=== PATIENT | male | born 1950 | race Caucasian/White ===

== ENCOUNTER 2020-09-14 10:18 | Emergency (ER) | payer MEDICARE, OTHER ==
[~2020-09-14] VITALS: Ht 172.7 cm; Wt 88.6 kg
[2020-09-14 11:12] LABS: BASO # 0.1 x10^3/uL (0.0-0.2); BASO % 1 % (0-3); EOS # 0.1 x10^3/uL (0.0-0.7); EOS % 2 % (0-3); HEMATOCRIT 43.4 % (39.0-53.0); HEMOGLOBIN 14.3 g/dL (13.0-17.5); LYMPH # 1.2 x10^3/uL (1.0-4.8); LYMPH % 18 % (24-48); MEAN CORPUSCULAR HEMOGLOBIN 30 pg (25-35); MEAN CORPUSCULAR HGB CONC 33 g/dL (31-37); MEAN CORPUSCULAR VOLUME 90 fL (79-100); MONO # 0.5 x10^3/uL (0.0-1.1); MONO % 7 % (0-9); NEUT # 4.9 x10^3uL (1.8-7.7); NEUT % 73 % (31-73); PLATELET COUNT 209 x10^3/uL (140-400); RED BLOOD COUNT 4.84 x10^6/uL (4.30-5.70); RED CELL DISTRIBUTION WIDTH 13.8 % (11.5-14.5); WHITE BLOOD COUNT 6.7 x10^3/uL (4.0-11.0)
[2020-09-14 11:14] LABS: ANION GAP 9 (6-14); BLOOD UREA NITROGEN 28 mg/dL (8-26); BUN/CREATININE RATIO 22 (6-20); CALCIUM 8.6 mg/dL (8.5-10.1); CARBON DIOXIDE 28 mmol/L (21-32); CHLORIDE 107 mmol/L (98-107); CREATININE 1.3 mg/dL (0.7-1.3); GFR 54.4; GLUCOSE 157 mg/dL (70-99); POTASSIUM 3.9 mmol/L (3.5-5.1); SODIUM 144 mmol/L (136-145)
--- NOTE | 2020-09-14 11:14 | RAD ---
CT HEAD/BRAIN WO Date: 09/14/2020 10:45 AM Clinical Indication: Reason: headache, dizzy times 3 days / Spl. Instructions: / History: Comparison: None. Technique: 5 mm axial tomographic images were obtained of the head without contrast. These were view ed on brain and bone windows. One or more of the following dose reduction techniques were utilized: A utomated exposure control (AEC), Adjustment of mA and/or kV according to patient size, Use of iterati ve reconstruction technique such as ASiR, CT scan done according to ALARA and image gently/image plummer ly Findings: Partially calcified probable extra-axial mass along the planum sphenoidale measuring 4.1 x 3.2 x 3.1 cm (TV by AP by CC). Cystic structure along the left aspect of the mass measures 3.2 x 2.5 x 2.6 cm. Hypoattenuation of the adjacent bifrontal white matter. Patent subarachnoid cisterns. No midline shif t. No acute hemorrhage. No vascular territory jones-white loss. The visualized paranasal sinuses are normal. The visualized portions of the orbits and globes are no rmal. The mastoid air cells are clear. 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 Impression: 1. Partially calcified 4.1 cm mass along the planum sphenoidale, probably a meningioma. Edema and/or gliosis in the surrounding white matter. This could be further evaluated with MRI. No midline shift. Patent subarachnoid cisterns. 2. 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 3. No acute intracranial hemorrhage. No large area jones-white loss. Electronically signed by: Compa Engel MD (09/14/2020 11:11 AM) [id number]
--- NOTE | 2020-09-14 11:16 | PHYS DOC ---
Past History Past Medical History: Diabetes Past Surgical History: Tonsillectomy Alcohol Use: None Adult General Chief Complaint Chief Complaint: WEAKNESS/GENERALIZED HPI HPI Patient is a 70-year-old male who presents to the emergency room from Dr. Woodall office for possible stroke. Patient states he has not felt normal for the last 3 days. He had a headache all day yesterday which was not helped by waku-cnu-hlzauxp medications. Last night he got up to try to go to the bathroom and it took him 15 minutes to make it 8 feet due to significant imbalance. This is atypical for him. He does not feel dizzy at rest. He does not feel focally weak or numb in any of his extremities. He feels like he is generally at 50% strength. He denies any associated symptoms such as URI symptoms, cough, shortness of breath, weight loss, nausea, vomiting, diarrhea, constipation, fevers, chills, sweats, visual changes. Review of Systems Review of Systems Complete ROS is negative unless otherwise documented in HPI Allergies Allergies Allergies Coded Allergies Type Severity Reaction Last Updated Verified amoxicillin Allergy Unknown 09/14/20 Yes Physical Exam Physical Exam General: Awake, alert, NAD. Well Nourished, well hydrated. Cooperative HEENT: Atraumatic, EOMI, PERRL, airway patent, moist oral mucosa Neck: Supple, trachea midline Respiratory: CTA bilaterally, normal effort, no wheezing/crackles CV: RRR, no murmur, cap refill <2 GI: Soft, nondistended, nontender, no masses MSK: No obvious deformities Skin: Warm, dry, intact Neuro: A&O x3, speech NL, 5/5 strength in BUE/BLE distally and proximally, CN 2- 12 intact, cerebellar testing normal, unable to stand without following Psych: Normal affect, normal mood, not suicidal or homicidal Current Patient Data Vital Signs Vital Signs Date Time Temp Pulse Resp B/P (MAP) Pulse Ox O2 Delivery O2 Flow Rate FiO2 09/14/20 10:28 98.1 75 16 164/92 (116) 98 09/14/20 10:28 Room Air EKG EKG [] Radiology/Procedures Radiology/Procedures [] Heart Score Risk Factors: Risk Factors: DM, Current or recent (<one month) smoker, HTN, HLP, family history of CAD, obesity. Risk Scores: Risk Factors: DM, Current or recent (<one month) smoker, HTN, HLP, family history of CAD, obesity. Course & Med Decision Making Course & Med Decision Making Pertinent Labs and Imaging studies reviewed. (See chart for details) Patient is a 70-year-old male who presents to the emergency room complaining of generalized weakness and dizziness. Patient has an NIH score of 0, however he has a significant headache. He also feels like it is harder to use his left arm than his right arm despite having normal strength in both. He has intact cranial nerves. CT head and a metabolic work-up was ordered to evaluate for generalized weakness and dizziness. CT shows mass with surrounding edema. There does not appear to be a hemorrhagic conversion. I have discussed the case with [facility] who will accept him to their neurosurgical service. Dragon Disclaimer Dragon Disclaimer This electronic medical record was generated, in whole or in part, using a voice recognition dictation system. Departure Departure: Impression: Primary Impression: Brain mass Additional Impression: Intracranial edema Disposition: 02 DC/TRF OTHER SHORT TERM HOS Condition: STABLE Referrals: MARGAUX WOODALL MD (PCP) Problem Qualifiers DIANE HUDSON MD Sep 14, 2020 11:16
[2020-09-14 11:20] LABS: ALBUMIN 3.5 g/dL (3.4-5.0); ALBUMIN/GLOBULIN RATIO 0.9 (1.0-1.7); ALK PHOS 59 U/L (46-116); ALT (SGPT) 27 U/L (16-63); AST (SGOT) 13 U/L (15-37); LIPASE 151 U/L (73-393); TOTAL BILIRUBIN 0.6 mg/dL (0.2-1.0); TOTAL PROTEIN 7.2 g/dL (6.4-8.2)
[2020-09-14 11:22] LABS: BACTERIA,URINE 0 /HPF (0-FEW); BILIRUBIN,URINE NEG (NEG); CLARITY,URINE CLEAR; COLOR,URINE YELLOW; GLUCOSE,URINE NEG (NEG); NITRITE,URINE NEG (NEG); SQUAMOUS EPITHELIAL CELL,UR OCC /LPF; UROBILINOGEN,URINE 0.2 mg/dL (0.2 mg/dL)
[2020-09-14 11:25] LABS: C REACTIVE PROTEIN < 0.5 mg/L (0-3.3)
[2020-09-14] MEDS: DEXAMETHASONE SOD PHOS 10 MG/ML VIAL. IV ONE (11:30)
[2020-09-14 17:54] VITALS: BP 156/80
== END 2020-09-14 18:51 | disposition short-term general hospital (02) ==
LOC: ER 10:18
DX: G93.6 Cerebral edema (principal); R22.0 Localized swelling, mass and lump, head; E11.9 Type 2 diabetes mellitus without complications; Z88.1 Allergy status to other antibiotic agents
CPT/HCPCS: 36415; 70450; 80053; 81001; 82550; 83690; 85025; 86140; 96374; 99285; J1100

== ENCOUNTER → 2020-12-05 | Outpatient (CLI) | payer MEDICARE, OTHER ==
--- NOTE | 2020-12-05 16:22 | RAD ---
EXAM: CT Head without IV contrast INDICATION: Reason: FOLLOW UP AFTER TUMOR REMOVAL 2 MTHS AGO. ONGOING HEADACHE. / Spl. Instructions: / History: TECHNIQUE: Multi-detector row CT images were obtained of the head without the use of IV contrast. All CT scans performed at this facility utilize dose optimization techniques as appropriate to the exam, including the following: Automated exposure control and adjustment of the mA and/or KV according to patient size (this includes techniques or standardized protocols for targeted exams where dose is ind ication/reason for exam). COMPARISON: Noncontrast head CT of 09/14/2020 FINDINGS: BRAIN PARENCHYMA: No acute intracranial hemorrhage is apparent. There is low density in the bilateral inferior frontal lobes compatible with encephalomalacia. This extends to the anterior cortex of the inferior left frontal lobe, new from prior, consistent with a chronic cortical infarct. There is exte nsive white matter low density compatible chronic ischemic microvascular change or vasogenic edema, i mproved from prior and most notable in the bilateral frontal lobes. VENTRICLES & EXTRA-AXIAL SPACES: Ventricles are prominent in proportion to the degree of parenchymal volume loss. There has been an interval left pterional craniotomy for tumor resection with interval absence of the partly calcified floor of the anterior cranial fossa mass previously evident. Subjacen t to the craniotomy flap is a low-density fluid collection measuring up to 6 mm in depth, overlying t he partly calcified dura. Basilar cisterns are patent. No pathologic extra-axial fluid collection or mass. ORBITS: Orbital contents are unremarkable. SINUSES: Soft tissue layering in the left sphenoid sinus is present. Paranasal sinuses and mastoids are otherwise well aerated. OSSEOUS & SOFT TISSUES: No aggressive osseous lesions are seen. Skull base is intact. Left pterional craniotomy surgical changes newly noted. IMPRESSION: Interval postsurgical changes for extra-axial calcified mass resection from the floor of the anterior cranial fossa with residual encephalomalacia in the frontal lobes, and a low-density extra-axial flu id collection under the craniotomy flap as described. There has been some improvement in the bilatera l frontal white matter hypoattenuation compatible with vasogenic edema. Electronically signed by: Monik Winkler MD (12/05/2020 4:20 PM) [id number]
== END ==
LOC: CT 09:56
PROVIDERS: ATTEND Family Medicine
DX: G93.89 Other specified disorders of brain (principal); R51.9 Headache, unspecified
CPT/HCPCS: 70450

== ENCOUNTER 2021-10-08 07:28 | Emergency (ER) | payer MEDICARE, OTHER ==
[~2021-10-08] VITALS: Ht 177.8 cm; Wt 90.0 kg
--- NOTE | 2021-10-08 08:28 | PHYS DOC ---
Past History Past Medical History: Diabetes Additional Past Medical Histor: brain tumors Past Surgical History: Other Additional Past Surgical Histo: brain tumors removed 2020 Alcohol Use: None General Adult EDM: Chief Complaint: NEURO SYMPTOMS/DEFICITS HPI: HPI: Patient is a 71-year-old male coming in for tingling to his right forearm and hand. Says he feels his hand is swollen. Denies any headaches or neck pain. Is left-handed and was shoveling snow yesterday. Denies any other injuries. Woke up with the tingling. Review of Systems: Review of Systems: All other systems within normal limits except for as noted in the HPI Allergies: Allergies: Allergies Coded Allergies Type Severity Reaction Last Updated Verified amoxicillin Allergy Unknown 10/08/21 Yes Physical Exam: PE: Constitutional: Well developed, well nourished, no acute distress, non-toxic appearance. [] HENT: Normocephalic, atraumatic, bilateral external ears normal, nose normal. [] Eyes: PERRLA, conjunctiva normal, no discharge. [] Neck: No rigidity, supple, no stridor. [] Cardiovascular: Regular rate and rhythm, brisk cap refill [] Lungs & Thorax: Non labored symmetric respirations, no tachypnea or respiratory distress [] Abdomen: Soft, nondistended. Skin: Warm, dry, no erythema, no rash. [] Back: Unremarkable Extremities: No deformities, range of motion grossly intact, no lower extremity edema [] Neurologic: Alert and oriented X 3, no focal deficits noted. [] Psychologic: Affect normal, judgement normal, mood normal. [] Current Patient Data: Vital Signs: Vital Signs Date Time Temp Pulse Resp B/P (MAP) Pulse Ox O2 Delivery O2 Flow Rate FiO2 10/08/21 07:30 97.7 72 12 152/89 (110) 94 Room Air EKG: EKG: [] Radiology/Procedures: Radiology/Procedures: [address] [address] IMAGING REPORT Signed PATIENT: SHELBY CHOI ACCOUNT: [id number] : 1950 LOCATION: ER AGE: 71 SEX: M EXAM STATUS: REG ER ORD. PHYSICIAN: ZAINAB CHAWLA MD REASON: right arm tingling AND PAIN. PROCEDURE: CT HEAD AND CERVICAL SPINE WO CT HEAD AND C-SPINE WO Date: 10/08/2021 8:51 AM Clinical Indication: Reason: right arm tingling AND PAIN. / Spl. Instructions: / History: Comparison: CT head from 2020. Technique: 5 mm axial tomographic images were obtained of the head without contrast. These were viewed on brain and bone windows. Noncontrast CT of the cervical spine was performed. Sagittal and coronal reformats were performed and evaluated. One or more of the following dose reduction techniques were utilized: Automated exposure control (AEC), Adjustment of mA and/or kV according to patient size, Use of iterative reconstruction technique such as ASiR, CT scan done according to ALARA and image gently/image wisely HEAD FINDINGS: Neither mass, midline shift, intracranial hemorrhage, acute/subacute ischemic changes, nor extraaxial fluid collections are seen. Redemonstrated encephalomalacia involving bilateral inferior frontal lobes, left greater than right with postsurgical changes and dural thickening overlying the left frontal lobe. Similar brain parenchymal volume loss. Similar scattered supratentorial periventricular white matter hypodensities, indeterminate but most likely representing chronic microangiopathic disease. The ventricular system is within normal limits of variation. Minimal mucosal thickening in the left sphenoid sinus, remaining paranasal sinuses, mastoid air cells, and middle ears are clear..The orbital contents appear within normal limits. Left pterional craniotomy surgical changes. No acute fracture or aggressive osseous abnormalities. Soft tissues are unremarkable. CERVICAL SPINE FINDINGS: The cervical spine is normally aligned. There is minimal grade 1 anterolisthesis of C3 on C4, and C4 and C5. No acute fracture. No aggressive lytic or blastic osseous lesions. Moderate to severe multilevel degenerative disc space height loss. Multilevel mild spinal canal stenosis secondary to disc protrusions and marginal osteophytes. Most pronounced at the C5-C6 and C6-C7 levels. Multilevel mild to moderate neuroforaminal narrowing secondary to uncovertebral arthrosis. Multilevel mild facet arthrosis. The thyroid gland is normal. No cervical lymphadenopathy. Bilateral carotid atherosclerosis. The visualized aerodigestive tract is normal. The visualized portions of the lungs are clear. IMPRESSION: 1. No acute intracranial process. 2. No acute cervical spine fracture. 3. Redemonstrated postsurgical changes with residual encephalomalacia in the frontal lobes, left greater than right.. 4. Moderate to severe degenerative cervical spondylosis, as above. Electronically signed by: Rob Dimas DO (10/08/2021 9:11 AM) [id number] DICTATED AND SIGNED BY: ROB DIMAS DO DATE: 10/08/21857 CC: ZAINAB CHAWLA MD; MARGAUX OBREGON MD ~MTH0 0 [][place] [address] IMAGING REPORT Signed PATIENT: SHELBY CHOI ACCOUNT: [id number] : 1950 LOCATION: ER AGE: 71 SEX: M EXAM STATUS: REG ER ORD. PHYSICIAN: ZAINAB CHAWLA MD REASON: pain WITH WEAKNESS PROCEDURE: FOREARM RIGHT XR FOREARM_RIGHT 2 VIEWS 10/08/2021 8:34 AM INDICATION: Pain with weakness COMPARISON: None available. TECHNIQUE: 2 views the right forearm are provided. FINDINGS/ IMPRESSION: There is no acute fracture or dislocation. Joint spaces are maintained. Bone mineralization is within normal limits. Regional soft tissues are within normal limits. There is no soft tissue gas or osseous erosion. No radiopaque foreign body. Electronically signed by: Arun Bob MD (10/08/2021 8:59 AM) [id number] DICTATED AND SIGNED BY: ARUN BOB MD DATE: 10/08/21857 CC: ZAINAB CHAWLA MD; MARGAUX OBREGON MD ~MTH0 0 Heart Score: C/O Chest Pain: No Risk Factors: Risk Factors: DM, Current or recent (<one month) smoker, HTN, HLP, family history of CAD, obesity. Risk Scores: Score 0 - 3: 2.5% MACE over next 6 weeks - Discharge Home Score 4 - 6: 20.3% MACE over next 6 weeks - Admit for Clinical Observation Score 7 - 10: 72.7% MACE over next 6 weeks - Early Invasive Strategies Course & Med Decision Making: Course & Med Decision Making Pertinent Labs and Imaging studies reviewed. (See chart for details) [] Dragon Disclaimer: Dragon Disclaimer: This electronic medical record was generated, in whole or in part, using a voice recognition dictation system. Departure Departure: Impression: Primary Impression: Arm pain Disposition: HOME / SELF CARE / HOMELESS Condition: STABLE Referrals: MARGAUX OBREGON MD (PCP) Patient Instructions: RICE - Routine Care for Injuries Scripts Ibuprofen (IBUPROFEN) 600 Mg Tablet 600 MG PO PRN Q8HRS PRN for PAIN for 10 Days, #30 TAB Prov: ZAINAB CHAWLA MD 10/08/21 ZAINAB CHAWLA MD Oct 08, 2021 08:28
--- NOTE | 2021-10-08 09:02 | RAD ---
XR FOREARM_RIGHT 2 VIEWS 10/08/2021 8:34 AM INDICATION: Pain with weakness COMPARISON: None available. TECHNIQUE: 2 views the right forearm are provided. FINDINGS/ IMPRESSION: There is no acute fracture or dislocation. Joint spaces are maintained. Bone mineralization is within normal limits. Regional soft tissues are within normal limits. There is no soft tissue gas or osseou s erosion. No radiopaque foreign body. Electronically signed by: Shira Ackerman MD (10/08/2021 8:59 AM) [id number]
[2021-10-08 09:14] LABS: BASO # 0.1 x10^3/uL (0.0-0.2); BASO % 1 % (0-3); EOS # 0.2 x10^3/uL (0.0-0.7); EOS % 2 % (0-3); HEMATOCRIT 44.2 % (39.0-53.0); HEMOGLOBIN 14.8 g/dL (13.0-17.5); LYMPH # 1.3 x10^3/uL (1.0-4.8); LYMPH % 16 % (24-48); MEAN CORPUSCULAR HEMOGLOBIN 30 pg (25-35); MEAN CORPUSCULAR HGB CONC 33 g/dL (31-37); MEAN CORPUSCULAR VOLUME 91 fL (79-100); MONO # 0.5 x10^3/uL (0.0-1.1); MONO % 7 % (0-9); NEUT # 5.8 x10^3uL (1.8-7.7); NEUT % 74 % (31-73); PLATELET COUNT 189 x10^3/uL (140-400); RED BLOOD COUNT 4.88 x10^6/uL (4.30-5.70); RED CELL DISTRIBUTION WIDTH 13.7 % (11.5-14.5); WHITE BLOOD COUNT 7.9 x10^3/uL (4.0-11.0)
--- NOTE | 2021-10-08 09:14 | RAD ---
CT HEAD AND C-SPINE WO Date: 10/08/2021 8:51 AM Clinical Indication: Reason: right arm tingling AND PAIN. / Spl. Instructions: / History: Comparison: CT head from 2020. Technique: 5 mm axial tomographic images were obtained of the head without contrast. These were view ed on brain and bone windows. Noncontrast CT of the cervical spine was performed. Sagittal and jimenez l reformats were performed and evaluated. One or more of the following dose reduction techniques were utilized: Automated exposure control (AEC), Adjustment of mA and/or kV according to patient size, Us e of iterative reconstruction technique such as ASiR, CT scan done according to ALARA and image gentl y/image wisely HEAD FINDINGS: Neither mass, midline shift, intracranial hemorrhage, acute/subacute ischemic changes, nor extraaxial fluid collections are seen. Redemonstrated encephalomalacia involving bilateral inferior frontal lob es, left greater than right with postsurgical changes and dural thickening overlying the left frontal lobe. Similar brain parenchymal volume loss. Similar scattered supratentorial periventricular white matter hypodensities, indeterminate but most likely representing chronic microangiopathic disease. Th e ventricular system is within normal limits of variation. Minimal mucosal thickening in the left sphenoid sinus, remaining paranasal sinuses, mastoid air cells , and middle ears are clear..The orbital contents appear within normal limits. Left pterional craniot yokasta surgical changes. No acute fracture or aggressive osseous abnormalities. Soft tissues are unremar kable. CERVICAL SPINE FINDINGS: The cervical spine is normally aligned. There is minimal grade 1 anterolisthesis of C3 on C4, and C4 and C5. No acute fracture. No aggressive lytic or blastic osseous lesions. Moderate to severe multilevel degenerative disc space height loss. Multilevel mild spinal canal steno sis secondary to disc protrusions and marginal osteophytes. Most pronounced at the C5-C6 and C6-C7 le vels. Multilevel mild to moderate neuroforaminal narrowing secondary to uncovertebral arthrosis. Mult ilevel mild facet arthrosis. The thyroid gland is normal. No cervical lymphadenopathy. Bilateral carotid atherosclerosis. The visu alized aerodigestive tract is normal. The visualized portions of the lungs are clear. IMPRESSION: 1. No acute intracranial process. 2. No acute cervical spine fracture. 3. Redemonstrated postsurgical changes with residual encephalomalacia in the frontal lobes, left grea ter than right.. 4. Moderate to severe degenerative cervical spondylosis, as above. Electronically signed by: Edwardo Dimas DO (10/08/2021 9:11 AM) [id number]
[2021-10-08 09:20] LABS: CALCIUM 8.4 mg/dL (8.5-10.1); CREATININE 1.2 mg/dL (0.7-1.3); GFR 59.5; POTASSIUM 4.1 mmol/L (3.5-5.1)
[2021-10-08 09:25] LABS: ALBUMIN 3.4 g/dL (3.4-5.0); ALBUMIN/GLOBULIN RATIO 0.9 (1.0-1.7); MAGNESIUM 2.2 mg/dL (1.8-2.4); PHOSPHORUS 3.7 mg/dL (2.6-4.7); TOTAL BILIRUBIN 0.6 mg/dL (0.2-1.0); TOTAL PROTEIN 7.2 g/dL (6.4-8.2)
[2021-10-08] MEDS ORDERED: IBUPROFEN 600 MG TABLET. PO ONE (09:45)
[2021-10-08] MEDS ORDERED: IBUP600T16 PO (09:52)
[2021-10-08 10:25] VITALS: BP 167/107
== END 2021-10-08 10:28 | disposition home or self-care (01) ==
LOC: ER 07:28
DX: M79.601 Pain in right arm (principal); R20.2 Paresthesia of skin; R22.31 Localized swelling, mass and lump, right upper limb; E11.9 Type 2 diabetes mellitus without complications; Z88.1 Allergy status to other antibiotic agents
CPT/HCPCS: 36415; 70450; 72125; 73090; 80053; 83735; 84100; 85025; 99285